=== PATIENT | male | born 1945 | race Caucasian/White ===

== ENCOUNTER → 2017-08-29 | Outpatient (CLI) | payer OTHER ==
[~2017-08-29] MED LIST: FLOMAX0.4 MG PO; METRONIDAZOLE45 G1 TP
== END ==
LOC: MRI 09:44
DX: I67.82 Cerebral ischemia (principal); G31.9 Degenerative disease of nervous system, unspecified; G56.03 Carpal tunnel syndrome, bilateral upper limbs; G62.9 Polyneuropathy, unspecified

== ENCOUNTER 2018-10-24 06:39 | Inpatient (IN) | payer OTHER ==
[~2018-10-24] VITALS: Ht 167.6 cm; Wt 88.6 kg
[2018-10-24 07:15] VITALS: BP 118/65
[2018-10-24] MEDS ORDERED: ASPIR 8181 MG PO (07:18)
[2018-10-24] MEDS ORDERED: GLUCOSAMINE HC500 MG PO (07:18)
[2018-10-24] MEDS ORDERED: UNICOMPLEX M TA1 TA1 PO (07:19)
[2018-10-24 07:44] LABS: HEMATOCRIT 40.8 % (42.0-52.0); HEMOGLOBIN 14.1 gm/dL (14.0-18.0); MCH 32.3 pg (26.0-34.0); MCHC 34.5 g/dL (28.0-37.0); MCV 93.5 fL (80.0-100.0); RBC 4.37 mil/uL (4.50-6.00); RDW 12.4 % (10.5-14.5); WBC 5.4 thou/uL (4.0-11.0)
[2018-10-24 08:04] LABS: ANION GAP 7 mmol/L (7-16); BUN 22 mg/dL (7-18); CALCIUM 9.2 mg/dL (8.5-10.1); CHLORIDE 105 mmol/L (98-107); CO2 27 mmol/L (21-32); CREATININE 1.1 mg/dL (0.7-1.3); GLUCOSE 101 mg/dL (74-106); POTASSIUM 4.1 mmol/L (3.5-5.1); SODIUM 139 mmol/L (136-145)
[2018-10-24 08:09] LABS: CHOLESTEROL 173 mg/dL (<200); HDL CHOLESTEROL 35 mg/dL (>40); LDL CHOLESTEROL 112 mg/dL (<100); TC:HDL 4.9 Ratio (Not establshd); TRIGLYCERIDE 131 mg/dL (<150); VLDL 26 mg/dL (<40)
--- NOTE | 2018-10-24 08:44 | EKG ---
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[facility] : 1945 Requested By: Juice Rivera Order Number: [id number] MD: Ignacio Vines Measurements Intervals [place] Rate: 57 P: -1 [place]: 99 QRS: -42 QRSD: 110 T: -23 QT: 421 QTc: 410 Interpretive Statements Sinus rhythm Short [place] interval Leftward axis Abnormal R-wave progression, early transition Compared to ECG 09/26/2002 08:15:03 no significant change was found Electronically Signed On 10-24-2018 8:44:14 CDT by Ignacio Vines [email or web address] ��������������������������������������������� <ELECTRONICALLY SIGNED> ���������������������������������������� By: Ignacio Vines MD, [facility] ��������������������������������������������� 10/24/18 0844 6 6 Ignacio Vines MD, [facility] /EPI
--- NOTE | 2018-10-24 12:35 | CATHLAB ---
[facility] [address] [facility] [place] [address] INVASIVE PROCEDURE REPORT Name: ALICEOSCAR MUSA Room #: REG [facility].#: [id number] ������������� Admission: 10/24/18 ������������� Attend Phys: Rebeccahever Falk, Discharge: ��� ������������� ��� Date of : 45 Date of Service: 10/24/18 1234 �� Report #: [id number] �������� ��������������������������������������������[id number] THIS REPORT FOR: //name// APPROVED REPORT Study performed: 10/24/2018 07:34:39 Patient Details Patient Status: Out-Patient Room #: The patient is a 73 year-old male Event Personnel Juice Rivera Examination Scorer, Carlos Machado RTR Vicky Champagne David Monitor, Charissa Viera RN daycare director Performed Left Heart Cath w/or w/o Coronaries [id number] [facility] Indication Abnormal ECG, Chest pain Admission/Lab Medications/Medications given during procedure Aspirin, Heparin Unfract. Procedure Narrative The patient was brought electively to the Cardiac Catheterization Laboratory and was prepped and draped in a sterile manner. The Right Wrist^ was infiltrated with 1% Lidocaine subcutaneous anesthesia. A TRANSRADIAL SLENDER 6F GLIDESHEATH KIT #[id number] sheath was inserted into the Right Radial Artery^. Coronary angiography was performed using coronary diagnostic catheters. The right coronary system was accessed and visualized with a 6FR 3DRC #[id number] catheter. The left coronary system was accessed and visualized with a JL4 catheter. The left ventricle was accessed and visualized with a PIGTAIL catheter. Left ventricular/Aortic Valve gradient assessed via catheter pullback. Left ventriculogram was performed in 30 degree projection. Closure device was deployed with a 6 Fr VASC BAND R 24CM #[id number]. The patient tolerated the procedure well and there were no complications associated with the procedure. There was no hematoma. Intraoperative Conscious Sedation Sedation start time: 8.34 Case end Time: 9.33 Fentanyl 50 mcg Vers[address] [facility] [place] [address] INVASIVE PROCEDURE REPORT Name: OSCAR JENKINS Room #: REG CL [facility]#: [id number] ������������� Admission: 10/24/18 ������������� Attend Phys: Rebecca Falk, Discharge: ��� ������������� ��� Date of : 45 Date of Service: 10/24/18 1234 �� Report #: [id number] �������� ��������������������������������������������[id number] Fluoro Time: 7.60 minutes Dose: DAP 9979.00 cGycm2 1287 mGy Contrast Type and Amount: Visipaque 130 ml Coronary Angiography The patient's coronary anatomy is right dominant. Diagnostic Cath Left Main 0% stenosis LAD 70% mid stenosis Diagonal 1 large vessel with 70% proximal stenosis and 99% stenosis noted in a small branch after the vessel bifurcates Circumflex 0% stenosis in a small vessel Right Coronary 90% proximal stenosis Ramus 99% proximal stenosis Left Ventriculography The left ventricle is normal in size with normal contractility. The left ventricular ejection fraction is estimated to be 55-60%. Left ventricular wall motion abnormalities are not present. There is no mitral insufficiency. Hemodynamics The aortic pressure is 130/71 mmHg with a mean of mmHg. The left ventricular pressure is 149/12 mmHg with a mean of mmHg. The left ventricular end diastolic pressure is 18 mmHg. There was no gradient across the aortic valve upon pullback. Pullback from the left ventricle to the aorta revealed no gradient across the aortic valve. Conclusion 1. CAD manifested by a 70% stenosis of the mid lad, 99% stenosis of a small branch of the first diagonal artery, 90% stenosis of the proximal rca, and 99% stenosis of the ramus branch 2. LVEf 55-60% Recommendations CABG ��������������������������������������������� <ELECTRONICALLY SIGNED> ���������������������������������������� By: Juice Rivera MD, FACC ��������������������������������������������� 10/24/18 1234 1234 1234 Juice Rivera MD, FACC /INF
--- NOTE | 2018-10-24 15:19 | NUR ---
PT ARRIVED TO UNIT, POST CATH. RIGHT RADIAL SITE DRESSING CDI, NO HEMATOMA. PT ALERT AND ORIENTED, NO C/O PAIN, O2 SATS WNL ON ROOM AIR, SR ON MONITOR- ADMISSION STRIP PRINTED AND DOCUMENTED. ADMISSION COMPLETED FOR PRIMARY NURSE ANKUR. TELE SHEET DISCUSSED WITH PT, COMMUNICATES UNDERSTANDING. HEPARIN GTT CONTINUES. DENIES NEEDS AT THIS TIME. WILL INFORM PRIMARY NURSE THAT ADMISSION COMPLETE.
--- NOTE | 2018-10-24 15:32 | 2DMMODE ---
[facility] [address] [place] [address] 2 D/M-MODE ECHOCARDIOGRAM Name: ALICEOSCAR MUSA Room #: 219-P ADM IN M.R.#: [id number] ������������� Admission: 10/24/18 ������������� Attend Phys: Juice Rivera MD Discharge: ��� ������������� ��� Date of : 45 Date of Service: 10/24/18 1531 �� Report #: [id number] �������� ��������������������������������������������[id number] THIS REPORT FOR: //name// APPROVED REPORT Study performed: 10/24/2018 14:49:06 EXAM: Comprehensive 2D, Doppler, and color-flow Echocardiogram Patient Location: Out-Patient Room #: 219 Status: routine BSA: 2.01 HR: 61 bpm BP: 118/65 mmHg Rhythm: NSR Other Information Study Quality: Adequate Indications CAD. PRE-OP CABG. 2D Dimensions RVDd: 29.93 mm IVSd: 12.42 (7-11mm) LVOT Diam: 21.58 (18-24mm) LVDd: 37.49 mm PWd: 11.81 (7-11mm) Ascending Ao: 33.10 (22-36mm) LVDs: 28.00 (25-40mm) Aortic Root: 36.79 mm Volumes Left Atrial Volume (Systole) Single Plane 4CH: 43.47 mL Single Plane 2CH: 64.74 mL LA ESV Index: 28.00 mL/m2 Aortic Valve AoV Peak Raul.: 1.21 m/s AO Peak Gr.: 5.90 mmHg LVOT Max P.77 mmHg LVOT Max V: 0.83 m/s JUAREZ Vmax: 2.50 cm2 Mitral Valve E/A Ratio: 0.7 MV Decel. Time: 238.73 ms MV E Max Raul.: 0.61 m/s [facility] [address] [place] [address] 2 D/M-MODE ECHOCARDIOGRAM Name: OSCAR JENKINS Room #: 219-P [facility] IN M.R.#: [id number] ������������� Admission: 10/24/18 ������������� Attend Phys: Juice Rivera MD Discharge: ��� ������������� ��� Date of : 45 Date of Service: 10/24/18 1531 �� Report #: [id number] �������� ��������������������������������������������[id number] MV A Raul.: 0.93 m/s MV PHT: 69.23 ms IVRT: 69.20 ms Pulmonary Valve PV Peak Raul.: 0.70 m/s PV Peak Gr.: 1.94 mmHg Pulmonary Vein P Vein S: 0.51 m/s P Vein A: 0.36 m/s P Vein D: 0.34 m/s P Vein A Dur.: 133.8 msec P Vein S/D Ratio: 1.50 Tricuspid Valve TR Peak Raul.: 2.05 m/s RAP Estimate: 5.00 mmHg TR Peak Gr.: 16.84 mmHg PA Pressure: 22.00 mmHg Left Ventricle The left ventricle is normal size. Mild concentric left ventricular hypertrophy. Left ventricular systolic function is normal. LVEF is 55-60%. Mild diastolic dysfunction is present (impaired relaxation pattern). Right Ventricle The right ventricle is normal size. The right ventricular systolic function is normal. Atria The left atrium size is normal. The right atrium size is normal. Aortic Valve The aortic valve is normal in structure. No aortic regurgitation is present. There is no aortic valvular stenosis. Mitral Valve The mitral valve is normal in structure. Trace mitral regurgitation. Tricuspid Valve The tricuspid valve is normal in structure. Mild tricuspid regurgitation. Estimated PAP is 20-25mmHg. Pulmonic Valve Pulmonic valve is not well visualized. [facility] [address] [place] [address] 2 D/M-MODE ECHOCARDIOGRAM Name: OSCAR JENKINS LENCHO Room #: 219-P [facility] IN M.R.#: [id number] ������������� Admission: 10/24/18 ������������� Attend Phys: Juice Rivera MD Discharge: ��� ������������� ��� Date of : 45 Date of Service: 10/24/18 1531 �� Report #: [id number] �������� ��������������������������������������������[id number] Great Vessels Aortic root is borderline dilated. The ascending aorta is normal in size. IVC is normal in size and collapses >50% with inspiration. Pericardium There is no pericardial effusion. <Conclusion> The left ventricle is normal size. LVEF is 55-60%. The aortic valve is normal in structure. The mitral valve is normal in structure. Trace mitral regurgitation. The tricuspid valve is normal in structure. Mild tricuspid regurgitation. Estimated PAP is 20-25mmHg. Pulmonic valve is not well visualized. ��������������������������������������������� <ELECTRONICALLY SIGNED> ���������������������������������������� By: Jules Braxton MD ��������������������������������������������� 10/24/18 [phone] Jules Braxton MD /INF
--- NOTE | 2018-10-24 16:30 | NUR ---
PATIENT ARRIVED FRO MANDARIN SPEAKING NANNY, ALERT AND ORIENTED X4. DRESSING TO RT RADIAL IS D/C/I, LIMB ALERT IS INPLACE. VSS AND SR ON THE MONITOR. PATEINT S/B DR MCCARTNEY AND HIS TEAM. HE IS SCHEDULLED FOR OPEN HEART SURG IN THE AM, ON HEPARIN GTT. NPO MIDNIGHT AND HEPARIN TO BE TURNED OFF IN THE AM. AND WILL CONTINUE WITH POC.
[2018-10-24 17:15] LABS: FOLIC ACID 32.7 ng/mL (8.6-58.9)
[2018-10-24 19:16] LABS: URINE BILIRUBIN NEGATIVE (Negative); URINE BLOOD NEGATIVE (Negative); URINE CLARITY CLEAR; URINE COLOR YELLOW; URINE GLUCOSE-RANDOM* NEGATIVE (Negative); URINE KETONES NEGATIVE (Negative); URINE LEUKOCYTES-REFLEX NEGATIVE (Negative); URINE NITRITE-REFLEX NEGATIVE (Negative); URINE PROTEIN (DIPSTICK) NEGATIVE (Negative); URINE UROBILINOGEN 0.2 E.U./dl (0.2-1.0)
[2018-10-24 19:46] VITALS: BP 131/85
[2018-10-25] VITALS (9 sets, daily range): BP systolic 88–133; BP diastolic 47–65
[2018-10-25 04:10] LABS: GLYCOHEMOGLOBIN (HGB A1C) 5.5 % (4.8-5.6)
--- NOTE | 2018-10-25 04:48 | NUR ---
ASSESSMENT DOCUMENTED.PT BEEN RESTING IN NO ACUTE DISTRESS.A/OX4.VSS.ON HEPARIN DRIP,BOLUS WAS GIVEN D/T APTT OF 38.3.TOLERATED.HEPARIN INFUSING AT 14UNITS/KG/HR.PREOPE BATHS COMPLETED.CONSENTS FORM SIGNED.PT DENIES ANY NEEDS AT THIS TIME.WILL CONTINUES TO MONITOR PER POC.
[2018-10-25 06:59] LABS: HEMATOCRIT 40.5 % (42.0-52.0); HEMOGLOBIN 13.7 gm/dL (14.0-18.0); MCHC 33.9 g/dL (28.0-37.0); MCV 94.4 fL (80.0-100.0); RBC 4.29 mil/uL (4.50-6.00); RDW 12.3 % (10.5-14.5); WBC 6.4 thou/uL (4.0-11.0)
[2018-10-25 07:09] LABS: PROTIME 10.4 Seconds (9.3-11.4)
[2018-10-25 07:10] LABS: ALBUMIN 3.6 g/dL (3.4-5.0); CALCIUM 8.6 mg/dL (8.5-10.1); MAGNESIUM 2.1 mg/dL (1.8-2.4); PHOSPHORUS 3.1 mg/dL (2.5-4.9); POTASSIUM 4.1 mmol/L (3.5-5.1); TOTAL BILIRUBIN 0.7 mg/dL (<0.1-1.0); TOTAL PROTEIN 6.9 g/dL (6.4-8.2)
[2018-10-25 07:39] LABS: APTT 67.1 Seconds (24.5-32.8)
[2018-10-25 13:31] LABS: HEMATOCRIT 24.5 % (42.0-52.0); MCH 32.8 pg (26.0-34.0); MCHC 34.7 g/dL (28.0-37.0); MCV 94.4 fL (80.0-100.0); RBC 2.6 mil/uL (4.50-6.00)
[2018-10-25 13:35] LABS: HEMOGLOBIN 8.5 gm/dL (14.0-18.0)
[2018-10-25 13:43] LABS: INR 1.5
[2018-10-25 13:45] LABS: APTT 27.6 Seconds (24.5-32.8)
[2018-10-25 13:55] LABS: FIBRINOGEN 172.2 mg/dL (210-360)
[2018-10-25 14:31] LABS: POC BE 2 mmol/L (-2.0 to +3.0); POC CA IONIZED 4.7 mg/dL (4.5-5.3); POC GLUCOSE 112 mg/dL (70-99); POC HCO3 26.3 mmol/L (22.0-26.0); POC HEMOGLOBIN 12.2 g/dL (14.0-18.0); POC POTASSIUM 4.7 mmol/L (3.5-5.1); POC SODIUM 136 mmol/L (136-145)
[2018-10-25 14:31] LABS: POC BE 0 mmol/L (-2.0 to +3.0); POC CA IONIZED 4.1 mg/dL (4.5-5.3); POC GLUCOSE 153 mg/dL (70-99); POC HCO3 24.7 mmol/L (22.0-26.0); POC HEMOGLOBIN 9.2 g/dL (14.0-18.0); POC POTASSIUM 5.1 mmol/L (3.5-5.1); POC SODIUM 136 mmol/L (136-145); POC pCO2 36.8 mmHg (35.0-45.0); POC pH 7.435 (7.360-7.450)
[2018-10-25 14:31] LABS: POC BE 0 mmol/L (-2.0 to +3.0); POC CA IONIZED 4.5 mg/dL (4.5-5.3); POC GLUCOSE 123 mg/dL (70-99); POC HCO3 25.4 mmol/L (22.0-26.0); POC HEMOGLOBIN 11.6 g/dL (14.0-18.0); POC POTASSIUM 4.9 mmol/L (3.5-5.1); POC SODIUM 135 mmol/L (136-145); POC pCO2 42.4 mmHg (35.0-45.0); POC pH 7.387 (7.360-7.450)
[2018-10-25 14:31] LABS: POC BE 0 mmol/L (-2.0 to +3.0); POC CA IONIZED 4.2 mg/dL (4.5-5.3); POC GLUCOSE 165 mg/dL (70-99); POC HCO3 25.1 mmol/L (22.0-26.0); POC HEMOGLOBIN 9.5 g/dL (14.0-18.0); POC POTASSIUM 4.5 mmol/L (3.5-5.1); POC SODIUM 137 mmol/L (136-145); POC pCO2 40.4 mmHg (35.0-45.0); POC pH 7.402 (7.360-7.450)
[2018-10-25 14:31] LABS: POC BE 1 mmol/L (-2.0 to +3.0); POC CA IONIZED 4.2 mg/dL (4.5-5.3); POC GLUCOSE 171 mg/dL (70-99); POC HEMOGLOBIN 8.8 g/dL (14.0-18.0); POC POTASSIUM 4.2 mmol/L (3.5-5.1); POC SODIUM 138 mmol/L (136-145)
[2018-10-25 14:31] LABS: POC BE 1 mmol/L (-2.0 to +3.0); POC GLUCOSE 137 mg/dL (70-99); POC HCO3 25.3 mmol/L (22.0-26.0); POC HEMOGLOBIN 10.2 g/dL (14.0-18.0); POC POTASSIUM 4.8 mmol/L (3.5-5.1); POC SODIUM 135 mmol/L (136-145); POC pH 7.455 (7.360-7.450)
[2018-10-25 14:32] LABS: POC BE 0 mmol/L (-2.0 to +3.0); POC CA IONIZED 4.1 mg/dL (4.5-5.3); POC GLUCOSE 164 mg/dL (70-99); POC HCO3 25.1 mmol/L (22.0-26.0); POC HEMOGLOBIN 7.5 g/dL (14.0-18.0); POC POTASSIUM 3.8 mmol/L (3.5-5.1); POC SODIUM 135 mmol/L (136-145); POC pCO2 40.2 mmHg (35.0-45.0); POC pH 7.405 (7.360-7.450)
[2018-10-25 14:32] LABS: POC BE 0 mmol/L (-2.0 to +3.0); POC CA IONIZED 4.6 mg/dL (4.5-5.3); POC GLUCOSE 157 mg/dL (70-99); POC HEMOGLOBIN 8.2 g/dL (14.0-18.0); POC POTASSIUM 3.6 mmol/L (3.5-5.1); POC SODIUM 137 mmol/L (136-145); POC pCO2 36.4 mmHg (35.0-45.0); POC pH 7.428 (7.360-7.450)
[2018-10-25 14:32] LABS: POC BE -1 mmol/L (-2.0 to +3.0); POC CA IONIZED 4.5 mg/dL (4.5-5.3); POC GLUCOSE 134 mg/dL (70-99); POC HCO3 23.4 mmol/L (22.0-26.0); POC HEMOGLOBIN 10.2 g/dL (14.0-18.0); POC POTASSIUM 3.7 mmol/L (3.5-5.1); POC SODIUM 138 mmol/L (136-145); POC pCO2 36.1 mmHg (35.0-45.0)
[2018-10-25 14:59] LABS: CALCIUM 7.4 mg/dL (8.5-10.1); POTASSIUM 3.8 mmol/L (3.5-5.1)
[2018-10-25 15:38] LABS: BE(vivo) -3.4 mmol/L (-2 to +3); HCO3 21.5 mmol/L (22.0-26.0); PCO2 38.2 mmHg (35.0-45.0); PO2 106.7 mmHg (80.0-100.0); pH 7.368 (7.360-7.450); sO2 97.8 % (92.0-98.0)
--- NOTE | 2018-10-25 18:02 | NUR ---
PATIENT ARRIVED FOR RECOVERY FROM OR AT 1430. HE WAS SEDATED ON PROPOFOL. SWAN DOCUMENTED, ARTERIAL LINE DOCUMENTED, CENTRAL LINE DOCUMENTED. MEDIASTINAL CHEST TUBES AND PLEURAL CHEST TUBE TO SUCTION AND DOCUMENTED. HE IS WAKING UP NOW AND IS FOLLOWING COMMANDS. HE EXPRESSES PAIN, NURSE EXPLAINED PAIN MANAGEMENT OPTIONS ONCE ET TUBE DISCONTINUED. NURSE PROVIDED REASSURANCE. HEMODYNAMIC MONITORING DOCUMENTED. INTAKE AND OUTPUT RECORDED. PACEMAKER IN PLACE, HOWEVER IT IS OFF. BLANKET WARMER WAS UTILIZED FOR A PERIOD OF TIME UNTIL GOAL TEMPERATURE REACHED. HE IS ABLE TO LIFT HEAD OFF PILLOW AND FOLLOW ALL COMMANDS. GOAL IS EXTUBATION BEFORE 1830. NURSE TO CONTINUE TO MONITOR PATIENT STATUS. PATIENT PROGRESSING TOWARDS PLAN OF CARE.
[2018-10-25 18:26] LABS: BE(vivo) -6.2 mmol/L (-2 to +3); HCO3 18.8 mmol/L (22.0-26.0); PCO2 35.7 mmHg (35.0-45.0); PO2 123.2 mmHg (80.0-100.0); sO2 98.3 % (92.0-98.0)
[2018-10-25 19:49] LABS: BE(vivo) -4.8 mmol/L (-2 to +3); HCO3 20.4 mmol/L (22.0-26.0); PCO2 37.8 mmHg (35.0-45.0); PO2 86.2 mmHg (80.0-100.0); pH 7.349 (7.360-7.450); sO2 96.2 % (92.0-98.0)
[2018-10-26 05:58] LABS: HEMATOCRIT 31.2 % (42.0-52.0); MCH 33.4 pg (26.0-34.0); MCHC 34.9 g/dL (28.0-37.0); MCV 95.7 fL (80.0-100.0); RBC 3.25 mil/uL (4.50-6.00); RDW 12.2 % (10.5-14.5); WBC 9.6 thou/uL (4.0-11.0)
[2018-10-26 06:05] LABS: CALCIUM 7.6 mg/dL (8.5-10.1); CREATININE 0.9 mg/dL (0.7-1.3); MAGNESIUM 2.3 mg/dL (1.8-2.4); POTASSIUM 3.8 mmol/L (3.5-5.1)
[2018-10-26 06:18] LABS: HEMOGLOBIN 10.9 gm/dL (14.0-18.0)
--- NOTE | 2018-10-26 07:22 | HC ---
[facility] [place] [address] CONSULTATION Name: OSCAR JENKINS Room #: 236-P [facility] M.R.#: [id number] Admission: 10/24/18 ������������������ Attend Phys: Juice Rivera MD, FA Discharge: ������������������ Date of : 45 Report #: [id number] THIS REPORT FOR: //name// CC: Juice Tomas DATE OF SERVICE: 10/24/2018 CARDIOLOGY CONSULTATION PRIMARY CARE PHYSICIAN: Charissa Tomas M.D. HISTORY OF PRESENT ILLNESS: The patient is a 73-year-old white male who was admitted for consideration of coronary artery bypass surgery. The patient recently complained of occasional tightness in his chest that radiated into his jaw. He noticed exertional dyspnea, but no palpitation, syncope, or edema. He actually had a nuclear stress test in 2017 that showed no evidence of ischemia. He recently was referred to a surface water manager who found no evidence of lung disease. However, he continued to have episodes of chest pressure and shortness of breath. I saw him in the Cardiology Clinic and recommended he undergo cardiac catheterization. This was performed earlier today at [facility] as an outpatient. Results showed normal left ventricular function. However, he had severe multivessel coronary artery disease with a 70% stenosis of the mid LAD, a 70% stenosis of the first diagonal branch, and 99% stenosis of the ramus branch, and a 90% stenosis of the proximal right coronary artery. I recommended that he be admitted and be considered for undergoing coronary artery bypass surgery. PAST MEDICAL HISTORY: Significant for hemicolectomy for colon cancer, hernia repair, hydrocele, partial liver resection for an abnormal lesion on MRI. He has had previous vasectomy. He has no history of hypertension, diabetes, and hyperlipidemia. He has a history of carotid stenosis on Doppler study 2 months ago that showed a 50-69% stenosis, although he has no history of stroke. MEDICATIONS: His only medication on admission included aspirin a day. ALLERGIES: He has previous allergy to AMOXICILLIN. FAMILY HISTORY: His father had heart disease. SOCIAL HISTORY: He is . He and his live in [place], [place]. 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 He quit smoking years ago, uses alcohol occasionally. REVIEW OF SYSTEMS: No history of asthma, peptic ulcer disease, kidney disease, [facility] [address] [place] [address] CONSULTATION Name: OSCAR JENKINS Room #: 236-P [facility] Chrissie Plascencia#: [id number] Admission: 10/24/18 ������������������ Attend Phys: Juice Rivera MD, FA Discharge: ������������������ Date of : 45 Report #: [id number] chronic skin condition, or psychiatric illness. PHYSICAL EXAMINATION: GENERAL: Revealed an elderly male, appeared in no distress. VITAL SIGNS: He had a blood pressure of 130/70, pulse is 70. HEENT: He was anicteric. Conjunctivae are pink. Mucous membranes moist. NECK: Neck veins do not appear distended. No carotid bruits. CHEST: Clear to auscultation. CARDIOVASCULAR: Regular rate and rhythm. ABDOMEN: Soft. EXTREMITIES: Had no edema. SKIN: Warm and dry. NEUROLOGIC: Nonfocal. He had an MRI of the head without contrast year ago that showed only atrophy and small vessel changes. LABORATORY DATA: Today, sodium 139, creatinine 1.1, glucose 101. Liver function studies were normal. Cholesterol 173, triglyceride 131, HDL 35, and LDL 112. White blood cell count 5.4, hemoglobin 14.1. IMPRESSION AND RECOMMENDATIONS: 1. Crescendo angina. 2. Severe multivessel coronary artery disease with preserved left ventricular function. Recommend consideration for coronary artery bypass surgery. I will consult Dr. Nelson. 3. Moderate carotid stenosis, asymptomatic. 4. History of colon cancer with previous partial liver resection. 5. Hyperlipidemia. I would recommend a statin drug, aiming for an LDL less than 70. ��������������������������������������������� <ELECTRONICALLY SIGNED> ���������������������������������������� By: Juice Rivera MD, [facility] ��������������������������������������������� 10/26/18 0722 1055 2319 Juice Rivera MD, FACC /nt
--- NOTE | 2018-10-26 07:43 | NUR ---
SEE CRITICAL CARE FLOWSHEET FOR VS, GTTS AND EVENTS. PT SLEPT WITH HOME CPAP ON-02SAT WNL. GOOD COUGH WHEN INSTRUCTED, C/O OF LT LAT SURGICAL PAIN. FENTANYL GIVEN ORDERED. MSCT ET PLEURAL-DRAINAGE SERO SANQ. MODERATE AMT. HBG 10 THIS AM. HARJINDER PO FLUIDS. ON INSULIN GTT TO KEEP BS <170. DID SIT UP ON SIDE OF BED. DID NOT TOLERATE PT BECOME NAUSEATED. ZOFRAN GIVEN. BP DROPPED TO SBP 106. CARDENE REMAINED OFF. GOOD UO. HEMODYNAMICS WNL. PT PROGRESSING TOWARD GOALS.CONT PLAN OF CARE
[2018-10-26 08:00] VITALS: BP 120/69
--- NOTE | 2018-10-26 08:14 | NUR ---
RD consult received for diet education. S/P CABG x 4 on 10/25. Still in ICU and npo status. Will address nutrition education needs following transfer out of ICU and at more appropriate time
--- NOTE | 2018-10-26 14:07 | NUR ---
INITIAL ASSESSMENT: Received consult for discharge planning. SW reviewed chart and spoke with nursing and attending physician. Pt was admitted from home. Pt is POD #1 CABG x 4. Pt is in ICU. SW met with pt and at bedside. Pt sitting up in chair during time of SW visit. Introduced role of SW. Pt is alert/orientated x 4. Pt and spouse live in their home. 5 steps to enter to the home and 5 steps inside the home. Prior to admission, pt was independent with ADLs. No use of DME. No hx of HH or SNF/Rehab placement. Pt is hopeful to return directly home. Pt's states she is not able to physically assist pt if needed. SW discussed possibility of HH or outpatient therapy and possible SNF placement. Pt and verbalized understanding. Pt's PCP is Dr. Charissa Tomas. No weekend discharge planned. SW is following to assist as needed with discharge planning.
--- NOTE | 2018-10-26 14:43 | EKG ---
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 CLAUDIO : 1945 Requested By: Nabeel Amaya Order Number: [id number] MD: Alonso Crowder Measurements Intervals [place] Rate: 92 P: 22 [place]: 131 QRS: -43 QRSD: 110 T: 120 QT: 404 QTc: 500 Interpretive Statements Sinus rhythm Left anterior fascicular block Anterolateral ST segment abnormalities, rule out ischemia Compared to ECG 10/24/2018 07:17:31 Short [place] interval no longer present Left-axis deviation no longer present Electronically Signed On 10-26-2018 14:43:46 CDT by Alonso Crowder [email or web address] ��������������������������������������������� <ELECTRONICALLY SIGNED> ���������������������������������������� By: Alonso Crowder MD ��������������������������������������������� 10/26/18 1443 1546 1546 Alonso Crowder MD /EPI
--- NOTE | 2018-10-26 14:47 | EKG ---
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 ��������������������������������������������� <ELECTRONICALLY SIGNED> ���������������������������������������� By: Alonso Crowder MD ��������������������������������������������� 10/26/18 1447 0712 Alonso Crowder MD /EPI
[2018-10-26 15:00] VITALS: BP 138/67
--- NOTE | 2018-10-26 18:30 | NUR ---
END OF SHIFT NOTE. PT PROGRESSING TOWARDS GOALS, ETC STILL REQUIRING CARDENE. VSS OTHER SMITH STABLE. MS CTS OUT. PACER WIRES WRAPPED. PAIN CONTROLLED WITH HYDROCODONE X 2 AN HOUR APART. POOR APPITITE. TOLORATING CLEAR LIQUIDS. OOB TO CHAIR. IS 500 AT BEST.
[2018-10-26 20:00] VITALS: BP 138/70
[2018-10-26 21:00] VITALS: BP 137/63
[2018-10-26 22:00] VITALS: BP 125/64
[2018-10-26 23:00] VITALS: BP 135/62
[2018-10-27] VITALS (20 sets, daily range): BP systolic 90–141; BP diastolic 51–70
[2018-10-27 05:08] LABS: BE(vivo) 0.7 mmol/L (-2 to +3); HCO3 24.2 mmol/L (22.0-26.0); PCO2 35.2 mmHg (35.0-45.0); PO2 57.8 mmHg (80.0-100.0); pH 7.456 (7.360-7.450); sO2 91.6 % (92.0-98.0)
[2018-10-27 05:29] LABS: HEMOGLOBIN 10.3 gm/dL (14.0-18.0); MCH 33.4 pg (26.0-34.0); MCHC 35.6 g/dL (28.0-37.0); MCV 93.8 fL (80.0-100.0); RBC 3.09 mil/uL (4.50-6.00); WBC 12.3 thou/uL (4.0-11.0)
[2018-10-27 05:37] LABS: CREATININE 0.8 mg/dL (0.7-1.3)
--- NOTE | 2018-10-27 06:00 | NUR ---
CABG X4 ON 10/25, PT IS NOW POST OP DAY 2. CARDENE GTT OFF FOR FOR SEVERAL HOURS OVERNIGHT, BUT HAD TO BE TURNED BACK ON D/T RISING BP. PT WORE CPAP MOST OF THE NIGHT, AND WEARS 2-4L NC WHEN OFF CPAP. PT HAS BEEN WORKING ON IS, BUT IS NOT ABLE TO REACH HIGH ON THE METER. STERNAL STEFFANY DRESSING IS DRY AND INTACT. L PLEURAL TUBE IS PATENT AND HAS NO LEAK. WILL CONTINUE TO MONITOR.
[2018-10-27 12:38] LABS: MAGNESIUM 2.3 mg/dL (1.8-2.4); PHOSPHORUS 1.7 mg/dL (2.5-4.9)
--- NOTE | 2018-10-27 19:09 | NUR ---
ASSUMED CARE @ 0700 10/27/18, PT ASSESSMENTS AND VSS COMPLETE PER ICU PROTOCOL, PT ALERT AND ORIENTED X4, PT ABLE TO FOLLOW COMMANDS TO HIS ABILITY. PT IN SR, AFEBRILE, ART AND IJ DC'D TODAY. PT ON 2L OF 02 SATS IN 90'S, PLEURAL CHEST TUBE STILL IN PLACE, PT TOLERATING DIET BUT LOW APPETITE NOTED. REIS DC'D TODAY. PT CURRENT STATUS IS CCU. PLAN OF CARE- CONT TO MONITOR.
[2018-10-28] VITALS (8 sets, daily range): BP systolic 97–132; BP diastolic 55–79
--- NOTE | 2018-10-28 07:00 | NUR ---
Pt c/o nauseated and vomited approximately 400-500 cc of green bile content. His ABD remains very distended despite passing flatus and belching in this shift. Notified Ms. Rj NP operations mgr. New orders received.
[2018-10-28 08:42] LABS: CALCIUM 8.9 mg/dL (8.5-10.1); CREATININE 0.8 mg/dL (0.7-1.3); POTASSIUM 3.9 mmol/L (3.5-5.1)
[2018-10-28 16:40] LABS: CALCIUM 8.7 mg/dL (8.5-10.1); CREATININE 0.8 mg/dL (0.7-1.3); PHOSPHORUS 2.3 mg/dL (2.5-4.9); POTASSIUM 3.7 mmol/L (3.5-5.1)
--- NOTE | 2018-10-28 19:21 | NUR ---
ASSUMED CARE @ 0700 10/28/18, PT ASSESSMENTS AND VSS COMPLETE PER CCU PROTOCOL. PT ALERT AND ORIENTED X 4, PT ABLE TO FOLLOW COMMANDS TO BEST ABILITY. PT ON 2L OF 02 SATS IN THE 90'S. PT SR ON THE MONITOR. KUB SHOWED AN ILEUS, NG PLACED, TO LIS, SUPPOSITORY GIVEN, PT HAD BM X 1 DURING THIS SHIFT. REPORT GIVEN TO YAYA RUTHERFORD. PLAN OF CARE- CONT TO MONITOR.
[2018-10-29] VITALS: BP 110/66
[2018-10-29 04:33] VITALS: BP 115/71
--- NOTE | 2018-10-29 05:50 | NUR ---
ASSESSMENTS CHARTED. POST CABG X 4. ILEUS, NG TUBE TO LOW INTERMITTEN SUCTION. SPOKE WITH BRIAN SHIELDS ABOUT PT'S SODIUM LEVEL BEING LOWER THAN IT WAS ORIGINALLY AFTER RECEIVING I BAG OF SODIUM PHOSPHATE. NO ORDERS RECEIVED AT THAT TIME. LATER DR YAO PUT IN ORDERS FOR PATIENT. PATIENT HAS BEEN ON STRICT NPO DURING SHIFT. PLAN OF CARE IS TO CONTINUE TREATMENT TO RESOLVE ILEUS AND REHAB FROM SURGERY. PATIENT DENIES PAIN. FALL PRECAUTIONS ARE IN PLACE.
[2018-10-29 06:10] LABS: HEMATOCRIT 32.2 % (42.0-52.0); HEMOGLOBIN 11.2 gm/dL (14.0-18.0); MCHC 34.9 g/dL (28.0-37.0); MCV 94.6 fL (80.0-100.0); RBC 3.4 mil/uL (4.50-6.00); WBC 7.2 thou/uL (4.0-11.0)
[2018-10-29 06:18] LABS: CALCIUM 8.1 mg/dL (8.5-10.1); CREATININE 0.7 mg/dL (0.7-1.3); POTASSIUM 3.6 mmol/L (3.5-5.1)
[2018-10-29 08:00] VITALS: BP 103/63
--- NOTE | 2018-10-29 08:22 | EKG ---
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 : 1945 Requested By: Guillermo Nelson Order Number: [id number] MD: Ignacio Vines Measurements Intervals [place] Rate: 86 P: 22 [place]: 130 QRS: -46 QRSD: 114 T: 167 QT: 395 QTc: 473 Interpretive Statements Sinus rhythm Left anterior fascicular block Abnormal R-wave progression, early transition Nonspecific intraventricular conduction delay Compared to ECG 10/26/2018 07:12:57 No significant change was found Electronically Signed On 10-29-2018 8:22:21 CDT by Ignacio Vines [email or web address] ��������������������������������������������� <ELECTRONICALLY SIGNED> ���������������������������������������� By: Ignacio Vines MD, [facility] ��������������������������������������������� 10/29/18 0822 5 5 Ignacio Vines MD, [facility] /EPI
--- NOTE | 2018-10-29 09:52 | NUR ---
PT UP TO CHAIR AROUND 0800 THIS MORNING, PT THEN NEEDED TO USE THE COMMODE. PT TO COMMODE, HAD LARGE SOFT BOWEL MOVEMENT. PT BACK TO CHAIR. XRAY CAME IN FOR KUB, PT TO BED.KUB FINISHED AND PT BACK TO CHAIR. PT LINENS CHANGED. PT ASKED THAT BARRIER CREAM BE APPLIED TO SCROTUM IT IS A LITTLE RED AND TENDER D/T SCOOTING TO EDGE OF BED. CREAM APPLIED, AREA RED BUT NO OPEN SPOTS. LINENS WERE CHANGED. PT O2 WAS OFF THIS MORNING. PT SPO2 97%. PT AMBULATED AROUND UNIT WITH PT, PT TOLERATED WELL AND SPO2 REMAINED 94% ON RA. PT BACK TO CHAIR, RESTING COMFORTABLY NOW.
[2018-10-29 10:00] VITALS: BP 102/68
[2018-10-29 18:00] VITALS: BP 86/53
[2018-10-30 08:18] LABS: HEMATOCRIT 30.3 % (42.0-52.0); HEMOGLOBIN 10.5 gm/dL (14.0-18.0); MCH 33.1 pg (26.0-34.0); MCHC 34.6 g/dL (28.0-37.0); MCV 95.6 fL (80.0-100.0); RBC 3.16 mil/uL (4.50-6.00); RDW 12.1 % (10.5-14.5); WBC 6.8 thou/uL (4.0-11.0)
[2018-10-30 08:26] LABS: CALCIUM 7.9 mg/dL (8.5-10.1); CREATININE 0.7 mg/dL (0.7-1.3); POTASSIUM 3.6 mmol/L (3.5-5.1)
--- NOTE | 2018-10-30 16:08 | NUR ---
SPOKE WITH PATIENT AND . WANTS TO BE ASSURED PATIENT CAN DC HOME WITH HH CARE. SHE REPORTS SHE NEEDS THE SUPPORT AND WANTS TO SURE PATIENT CONT WITH THERAPY. LEFT LIST OF HH AGENCIES TO REVIEW.
[2018-10-30 19:00] VITALS: BP 119/69
[2018-10-30 19:30] VITALS: BP 129/81
--- NOTE | 2018-10-30 19:48 | NUR ---
ASSUMED CARE AT 0700. PT A&OX4. PT WALKED X4 ON DAY SHIFT IN HALLWAY WITH PT, CARDIAC REHAB AND NURSING STAFF. PT STEADY WITH STANDBY ASSIST. PT'S NG TUBE WAS CLAMPED AT [address] ORDER. PT DENIES ANY N/V AT THIS TIME.
[2018-10-30 20:00] VITALS: BP 125/68
[2018-10-30 20:30] VITALS: BP 122/71
[2018-10-30 21:00] VITALS: BP 134/77
[2018-10-30 21:02] LABS: URINE CREATININE-RANDOM* 100.3 mg/dL
[2018-10-30 21:30] VITALS: BP 117/70
[2018-10-31] VITALS: BP 124/80
[2018-10-31 04:00] VITALS: BP 120/67
[2018-10-31 04:45] VITALS: BP 125/76
[2018-10-31 05:58] LABS: CREATININE 0.7 mg/dL (0.7-1.3); POTASSIUM 3.5 mmol/L (3.5-5.1)
[2018-10-31 07:27] VITALS: BP 131/81
--- NOTE | 2018-10-31 12:48 | NUR ---
PT TO RADIOLOGY FOR A SMALL BOWEL FOLLOW THROUGH AT 0830 AND RETURNED AT 1215. SPOKE WITH DR DENSON AND HE ORDERED FOR PT TO EAT FULL LIQUID LUNCH AND IF NO NAUSEA PRESENT THEN DC NG TUBE. WILL CONTINUE TO MONITOR.
--- NOTE | 2018-10-31 16:47 | NUR ---
PT IS POGESSING TOWARD GOAL OF DISCHARGE. CM TO FOLOW UP WITH PT TO FIND OUT HIS PEFERENCE FO HH PROVIDER. CM TO FOLLOW INDICATED WITH DC PLANNING.
[2018-10-31 20:00] VITALS: BP 122/71
[2018-10-31 23:39] VITALS: BP 136/72
[2018-11-01 03:49] VITALS: BP 137/80
[2018-11-01 07:06] VITALS: BP 117/65
[2018-11-01] MEDS ORDERED: LOPRESSOR25 PO (08:50)
[2018-11-01] MEDS ORDERED: LIPITOR40 MG PO (08:50)
[2018-11-01] MEDS ORDERED: MIRALAX17 GM PO (08:51)
[2018-11-01 10:40] VITALS: BP 137/80
--- NOTE | 2018-11-01 10:41 | NUR ---
DC planning recommendations discussed with the pt at bedside and the care team. Therapy is recommending home with hh and has dc'd inpt therapy tx. Pt aware and agreeable to hh. HH listing reviewed. Pt denies preference. Referral called to [facility] as they can take the pt ins and go to [place]. They can see him tomorrow. Dc capacity planner to fax referral and orders to them. Pt reports his can provide transport home at dc. Awaiting CTS imput, but likely home with hh later today.
[2018-11-01 11:21] VITALS: BP 89/55
--- NOTE | 2018-11-01 11:22 | NUR ---
sent hh referral to [facility], patient has orders and is ready today
[2018-11-01 15:42] VITALS: BP 137/80
[2018-11-01 15:48] VITALS: BP 108/64
--- NOTE | 2018-11-01 17:27 | NUR ---
PT PROGRESSING TOWARD DISCHARGE. SEE ASSESSMENTS FOR DETAILS. NO PAIN, AMBULATING IN ROOM ON OWN, AMBULATED COMPLETE DISTANCE AROUND ICU WITH ONE ASSIST- WELL TOLERATED. SR, ROOM AIR, TOLERATING DIET, PASSING FLATUS, VOIDING. SECURITY THREAT ANALYST SET UP HOME HEALTH. CARDIAC REHAB REINFORCED THEIR DISCHARGE INSTRUCTIONS. PT/ AWARE HOME HEALTH WILL BE PRESENT ON 11/02. OLVIN CRISTOBAL PA AND DR. MCCARTNEY ROUNDED TO SEE PT PRIOR TO DISCHARGE. SUSU REMOVED STEFFANY DRESSING AND CONFIRMED MED MANAGEMENT POST DISCHARGE. BUSINESS CARDS WITH APPOINTMENTS GIVEN FOR FOLLOW-UP APPOINTMENTS WITH DR. SAMAYOA AND DR. MCCARTNEY/OMAR PEREZ. DISCHARGE INSTRUCTIONS DISCUSSED WITH PT & , THEY BOTH VERBALIZED UNDERSTANDING. PER WHEELCHAIR WITH ASSISTANCE OF HOSPITAL VOLUNTEER, PT DISCHARGED TO HOME BY FAMILY VEHICLE WITH DRIVING.
--- NOTE | 2018-11-02 20:57 | HC ---
[facility] [place] [address] CONSULTATION Name: OSCAR JENKINS Room #: 249-P [facility] IN M.R.#: [id number] Admission: 10/24/18 ������������������ Attend Phys: Rebecca Falk MD Discharge: 11/01/18 ������������������ Date of : 45 Report #: [id number] THIS REPORT FOR: //name// CC: Juice Tomas DATE OF SERVICE: 10/24/2018 HISTORY OF PRESENT ILLNESS: We were asked by Dr. Juice Rivera to see the patient. The patient is a 73-year-old with angina. The patient states that he has had tightness in his chest that radiates to the jaw and some shortness of breath with exertion over the last 3 months. We note that a nuclear stress test done in 2017 showed no ischemia, pulmonary physician had seen the patient and found no evidence for pulmonary disease. Continued chest pain led to cardiac catheterization today by Dr. Rivera and this showed severe 3-vessel coronary disease including 70% LAD, 90% diagonal, 90% right and 90+ percent ramus intermedius stenosis. Left ventricular function appears to be normal. PAST MEDICAL HISTORY: Shows no evidence of important chronic disease. The patient denies hypertension and diabetes mellitus; previous history of colon cancer resection. MEDICATIONS AT HOME: Includes aspirin, glucosamine, chondroitin and vitamins. SOCIAL HISTORY: The patient is and lives in [place] with his . Former smoker. REVIEW OF SYSTEMS: CONSTITUTIONAL: Negative for fever. CARDIAC: Positive for chest pain. RESPIRATORY: Positive for shortness of breath with exertion. HEMATOLOGIC AND LYMPHATIC: Negative for bleeding problems. SKIN: Negative for rash. MUSCULOSKELETAL: Negative for joint pain. GASTROINTESTINAL: Negative for nausea, vomiting, blood in stool. GENITOURINARY: Negative for urgency, frequency, blood. NEUROLOGIC: Negative for motor or sensory dysfunction. PSYCHIATRIC: Negative for depression. ENDOCRINE: Negative for goiter or tremors. PHYSICAL EXAMINATION: GENERAL: The patient is a pleasant fellow. He is lying in bed after his catheterization. HEENT: Normocephalic. Face has some rosacea. Sclerae nonicteric. No arcus. [facility] [address] [place] [address] CONSULTATION Name: MATEUSZHAKEEMSUKHDEEPOSCAR Room #: 249-P [facility] IN M.R.#: [id number] Admission: 10/24/18 ������������������ Attend Phys: Rebecca Falk MD Discharge: 11/01/18 ������������������ Date of : 45 Report #: [id number] NECK: No mass, no bruit. CHEST: Clear to auscultation. HEART: Rhythm regular. ABDOMEN: Soft, no mass. EXTREMITIES: No clubbing, cyanosis or edema. SKIN: No rash or infection. NEUROLOGIC: No obvious motor or sensory dysfunction. MUSCULOSKELETAL: No bone or joint asymmetry or deformity. VASCULAR: 2+ dorsalis pedis pulses bilaterally. No important saphenous vein issues noted. PSYCHIATRIC: Shows insight into problem and is oriented and appropriate with pleasant affect. IMPRESSION: The patient has important 3-vessel coronary artery disease with good ventricular function. I have recommended coronary artery bypass surgery. Risks and details of this were discussed; this includes but not limited to bleeding, infection, anesthesia risks, heart and lung problems, stroke and . Options and alternatives were reviewed. The patient understands all of this and wishes to proceed. We will try to arrange surgery for this week, but note that the operating room controls the schedule ultimately. We will make our preoperative testing done prior to surgery. Thank you for the consult. ��������������������������������������������� <ELECTRONICALLY SIGNED> ���������������������������������������� By: Guillermo Nelson MD ��������������������������������������������� 11/02/18 2057 [id number] Guillermo Nelson MD /nt
--- NOTE | 2018-11-02 20:57 | O ---
[facility] [place] [address] OPERATIVE REPORT Name: OSCAR JENKINS Room #: 249-P [facility] IN M.R.#: [id number] Admission: 10/24/18 ������������������ Attend Phys: Rebecca Falk MD Discharge: 11/01/18 ������������������ Date of : 45 Report #: [id number] THIS REPORT FOR: //name// CC: Juice Tomas DATE OF SERVICE: 10/25/2018 PREOPERATIVE DIAGNOSIS: Coronary artery disease. POSTOPERATIVE DIAGNOSIS: Coronary artery disease. OPERATION: Coronary artery bypass x 4 including left internal mammary artery to left anterior descending artery, saphenous vein to diagonal and ramus intermedius and saphenous vein to posterior descending artery and endoscopic harvest, left greater saphenous vein. SURGEON: Guillermo Nelson MD BRADDISHER: OMAR Rangel. ANESTHESIA: General. INDICATIONS: The patient is a 73-year-old with angina and shortness of breath. The patient was treated primarily by Juice Rivera. Catheterization demonstrated severe 3-vessel coronary artery disease with good ventricular function. FINDINGS AND TECHNIQUE: After general anesthesia was established, left greater saphenous vein was harvested with an endoscopic approach and prepared for use as a conduit. Exposure was obtained through median sternotomy. Left internal mammary artery was harvested from chest wall. Pericardial well was made. Cannulation sutures were placed. Heparin was given. Aorta was cannulated. Right atrium was cannulated. Cardioplegia needle was positioned in the aortic root. Retrograde cardioplegia catheter was placed in the coronary sinus. Cardiopulmonary bypass was established. The aorta was cross clamped. Antegrade then retrograde cardioplegia were given. The heart was stopped. During electromechanical arrest, the distal anastomoses were performed and end-to-side anastomosis was made between vein and the posterior descending artery. This was a difficult vessel to find as the inferior surface of the heart was covered with the soldier's patch and we had to dissect this off to identify the PDA. Cold cardioplegia was given. A second segment of vein was sewn in end-to-side fashion to the ramus intermedius. Cold cardioplegia was given. The same segment of vein was sewn in end-to-side fashion to the diagonal artery. Cold cardioplegia was given. Left internal mammary artery was sewn in end-to-side fashion to the left anterior descending artery. Patency of this [facility] [address] [place] [address] OPERATIVE REPORT Name: OSCAR JENKINS Room #: 249-P [facility] IN M.R.#: [id number] Admission: 10/24/18 ������������������ Attend Phys: Rebecca Falk MD Discharge: 11/01/18 ������������������ Date of : 45 Report #: [id number] vessel was checked with the temperature technique. Cold cardioplegia was given. Two proximal anastomoses were performed. When these were complete, warm retrograde cardioplegia was given followed by warm continuous blood to the coronary sinus. When this infusion was complete, the crossclamp was removed, de-airing maneuvers were performed. The anastomoses were inspected and found to be satisfactory. As the patient warmed, nice cardiac activity resumed, chest tubes and pacing wires were placed, a marker was placed around the proximal anastomosis. When the patient was warm, he was weaned from cardiopulmonary bypass. Venous cannula was removed. Protamine was given, the aortic cannula was removed. Flows were measured in the bypass grafts. When hemostasis was satisfactory, chest was closed in the usual fashion. The patient was taken to the Intensive Care Unit in good condition having tolerated the procedure well. All counts were reported as correct. ��������������������������������������������� <ELECTRONICALLY SIGNED> ���������������������������������������� By: Guillermo Nelson MD ��������������������������������������������� 11/02/18 2057 [id number] Guillermo Nelson MD /nt
== END 2018-11-01 17:45 | disposition home health service (06) | DRG 233 ==
LOC: CATH 06:39 → ICU 12:43 → 2N 12:43 → ICU 12:44 → CATH 15:09 → TBA 10-25 07:32 → ICU 10-25 14:35 → ENTRNSPT 11-01 17:27 → ICU 11-01 17:45
PROVIDERS: Internal Medicine Cardiovascular Disease; Physician Assistant; Surgery Vascular Surgery; ADMIT Internal Medicine
PROC: B211YZZ Fluoroscopy of Multiple Coronary Arteries using Other Contrast (ICD-10-PCS; principal; 2018-10-24)
PROC: 4A023N7 Measurement of Cardiac Sampling and Pressure, Left Heart, Percutaneous Approach (ICD-10-PCS; principal; 2018-10-24)
PROC: B215YZZ Fluoroscopy of Left Heart using Other Contrast (ICD-10-PCS; principal; 2018-10-24)
PROC: 5A09357 Assistance with Respiratory Ventilation, Less than 24 Consecutive Hours, Continuous Positive Airway Pressure (ICD-10-PCS; 2018-10-25)
PROC: 02100Z9 Bypass Coronary Artery, One Artery from Left Internal Mammary, Open Approach (ICD-10-PCS; 2018-10-25)
PROC: 30233K1 Transfusion of Nonautologous Frozen Plasma into Peripheral Vein, Percutaneous Approach (ICD-10-PCS; 2018-10-25)
PROC: 05HY33Z Insertion of Infusion Device into Upper Vein, Percutaneous Approach (ICD-10-PCS; 2018-10-25)
PROC: 021209W Bypass Coronary Artery, Three Arteries from Aorta with Autologous Venous Tissue, Open Approach (ICD-10-PCS; 2018-10-25)
PROC: 5A1221Z Performance of Cardiac Output, Continuous (ICD-10-PCS; 2018-10-25)
PROC: 06BQ4ZZ Excision of Left Saphenous Vein, Percutaneous Endoscopic Approach (ICD-10-PCS; 2018-10-25)
DX: I25.10 Atherosclerotic heart disease of native coronary artery without angina pectoris (principal); N17.0 Acute kidney failure with tubular necrosis; K56.7 Ileus, unspecified; G47.33 Obstructive sleep apnea (adult) (pediatric); G62.9 Polyneuropathy, unspecified; I10 Essential (primary) hypertension; E11.9 Type 2 diabetes mellitus without complications; E78.5 Hyperlipidemia, unspecified; E66.9 Obesity, unspecified; E78.00 Pure hypercholesterolemia, unspecified; D69.6 Thrombocytopenia, unspecified; Z79.82 Long term (current) use of aspirin; Z79.899 Other long term (current) drug therapy; Z88.8 Allergy status to other drugs, medicaments and biological substances; Z88.1 Allergy status to other antibiotic agents; Z68.31 Body mass index [BMI] 31.0-31.9, adult; Z98.52 Vasectomy status; Z85.038 Personal history of other malignant neoplasm of large intestine; Z90.49 Acquired absence of other specified parts of digestive tract; Z82.49 Family history of ischemic heart disease and other diseases of the circulatory system; Z87.891 Personal history of nicotine dependence
CPT/HCPCS: 10078; 10081; 10203; 47000; 47001; 47002; 47297; 48888; 50010; 50249; 50409; 50456; 50498; 50668; 51301; 52131; 52259; 52314; 53327; 53358; 54118; 56455; 56524; 56525; 56526; 56527; 56528; 56531; 56534; 56668; 56760; 56898; 57093; 57116; 57167; 62110; 62950; 65003; 65020; 65047; 65090; 65135; 83006; 85076